=== PATIENT | male | born 1995 | race Two or more races ===

== ENCOUNTER → 2024-12-22 | Outpatient (CLI) | payer MEDICAID, SELFPAY ==
--- NOTE | 2024-12-22 09:04 | XR_ITS ---
Examination: Hand, left 3 views Technique: Hand AP, oblique, lateral 3 views Date and time of exam: December 22, 2024 0916 hours INDICATIONS: Injury to the hand with third digit pain November 29, 2024 FINDINGS: Comminuted intra-articular fracture proximal aspect proximal phalanx third digit with partial healing and adequate alignment No foreign bodies IMPRESSION: Comminuted intra-articular fracture proximal aspect proximal phalanx third digit with partial healing and adequate alignment
--- NOTE | 2024-12-22 09:04 | XR_ITS ---
Examination: Wrist, left 3 views Technique: Wrist AP, oblique, lateral 3 views Date and time of exam: December 22, 2024 0916 hours INDICATIONS: Injury to the wrist November 28, 2024, wrist pain. FINDINGS: No acute fracture. No dislocation No foreign body IMPRESSION: No acute fracture
== END | disposition home or self-care (01) ==
PROVIDERS: Referring Provider Nurse Practitioner Gerontology; Visit Provider Nurse Practitioner Gerontology
DX: S62.613A Displaced fracture of proximal phalanx of left middle finger, initial encounter for closed fracture (principal); X58.XXXA Exposure to other specified factors, initial encounter
CPT/HCPCS: 73110; 73130